=== PATIENT | female | born 1935 | race Caucasian/White ===

== ENCOUNTER 2017-05-31 14:20 | Emergency (ER) | payer MEDICARE, OTHER ==
[2017-05-31 14:27] VITALS: BP 132/72
--- NOTE | 2017-05-31 14:48 | ED Physician Documentation ---
PD HPI FEMALE - Stated complaint Stated Complaint: FEMALE - Chief complaint Chief Complaint: UTI - History obtained from History obtained from: Patient - History of Present Illness Timing - onset: Today Timing - duration: Days (1) Timing - details: Abrupt onset, Still present Associated symptoms: Dysuria, Urinary frequency. No: Vaginal discharge, Genital sore/lesion (no pain with wiping.) Similar symptoms before: Diagnosis (UTIs, but has not had one for about 2 years. ) Recently seen: Not recently seen Review of Systems Constitutional: denies: Fever, Chills GI: denies: Nausea, Vomiting Skin: denies: Rash, Lesions Musculoskeletal: denies: Back pain PD PAST MEDICAL HISTORY - Past Medical History Cardiovascular: Hypertension Neuro: CVA - Past Surgical History Past Surgical History: No - Present Medications Home Medications: Ambulatory Orders Medication Instructions Recorded Confirmed Aspirin/Dipyridamole [Aggrenox 25 1 each PO BID 07/14/13 05/31/17 mg-200 mg Capsule] Baclofen 10 mg PO TID 07/14/13 05/31/17 Citalopram [CeleXA] 15 mg PO DAILY 07/14/13 05/31/17 Lisinopril [Zestril] 40 mg PO DAILY 07/14/13 05/31/17 Metoprolol Tartrate 12.5 mg PO DAILY 07/14/13 05/31/17 diltiaZEM [Cardizem] 30 mg PO ONCE 07/14/13 05/31/17 predniSONE [Deltasone] 1 mg PO ONCE 07/14/13 05/31/17 Ciprofloxacin HCl [Cipro] 250 mg PO BID #10 tablet 05/31/17 Phenazopyridine [Pyridium] 200 mg PO TID PRN #15 tablet 05/31/17 - Allergies Allergies/Adverse Reactions: Allergies Allergy/AdvReac Type Severity Reaction Status Date / Time nitrofurantoin Allergy unknown Verified 07/14/13 09:38 [From Macrobid] nitrofurantoin Allergy unknown Verified 07/14/13 09:38 macrocrystalline * [From Macrobid] Sulfa (Sulfonamide Allergy unknown Verified 07/14/13 09:38 Antibiotics) - Social History Does the pt smoke?: No Smoking Status: Never smoker Does the pt drink ETOH?: No Does the pt have substance abuse?: No PD ED PE NORMAL - Vitals Vital signs reviewed: Yes - General General: Alert and oriented X 3, No acute distress, Well developed/nourished - Abdomen Abdomen: Soft, Non tender - Female Female : Deferred - Rectal Rectal: Deferred - Back Back: No CVA TTP - Derm Derm: Normal color, Warm and dry Results - Vitals Vitals: Vital Signs - 24 hr 05/31/17 14:24 Temperature 36.9 C Heart Rate 69 Respiratory 18 Rate Blood Pressure 132/72 H O2 Saturation 97 Oxygen O2 Source Room air - Labs Labs: Laboratory Tests 05/31/17 05/31/17 14:33 15:20 Urine Color YELLOW YELLOW Urine Clarity HAZY CLEAR Urine pH 6.0 6.0 Ur Specific Carmi 1.020 1.020 Urine Protein 100 H 100 H Urine Glucose (UA) NEGATIVE NEGATIVE Urine Ketones NEGATIVE NEGATIVE Urine Occult Blood TRACE-INTA TRACE-INTA Urine Nitrite NEGATIVE NEGATIVE Urine Bilirubin NEGATIVE NEGATIVE Urine Urobilinogen 0.2 (NORMAL) 0.2 (NORMAL) Ur Leukocyte Esterase SMALL H TRACE H Urine RBC 0-5 0-5 Urine WBC >25 H >25 H Ur Squamous Epith Cells MANY Squamous H FEW Squamous Urine Bacteria Few Few Ur Microscopic Review INDICATED INDICATED Urine Culture Comments NOT INDICATED INDICATED PD MEDICAL DECISION MAKING - ED course Complexity details: reviewed results, considered differential, d/w patient Departure - Departure Disposition: 01 Home, Self Care Clinical Impression: Urinary tract infection Qualifiers: Urinary tract infection type: acute cystitis Hematuria presence: without hematuria Qualified Code(s): N30.00 - Acute cystitis without hematuria Condition: Stable Record reviewed to determine appropriate education?: Yes Instructions: ED UTI Cystitis Female Prescriptions: Ciprofloxacin HCl [Cipro] 250 mg PO BID #10 tablet Phenazopyridine [Pyridium] 200 mg PO TID PRN #15 tablet PRN Reason: Pain Comments: Adequate fluids. Continue usual medications. Cipro twice daily for 5 days. Add phenazopyridine three times daily if needed for discomfort of urination. Recheck if not improving over the next 1-2 days. Discharge Date/Time: 05/31/17 16:02
[2017-05-31 14:56] LABS: BILIRUBIN,URINE NEGATIVE (NEGATIVE)
[2017-05-31 14:58] LABS: UA w/ MICROSCOPIC CHARGE YES
[2017-05-31 15:10] LABS: UR CULTURE IF IND NOT INDICATED; WBC,URINE >25 /HPF (0-5)
[2017-05-31] MEDS ORDERED: CIPROFLOXACIN 250 MG TABLET PO STA (15:10)
[2017-05-31] MEDS ORDERED: PHENAZOPYRIDINE 100 MG TABLET PO STA (15:10)
[2017-05-31] MEDS ORDERED: CIPROFLOXACIN 250 MG TABLET PO ONE ×2 (15:12→15:55)
[2017-05-31 15:44] LABS: BILIRUBIN,URINE NEGATIVE (NEGATIVE)
[2017-05-31 15:46] LABS: UA w/ MICROSCOPIC CHARGE YES
[2017-05-31 15:55] LABS: UR CULTURE IF IND INDICATED; WBC,URINE >25 /HPF (0-5)
== END 2017-05-31 16:02 | disposition home or self-care (01) ==
LOC: ED 14:20
DX: N30.00 Acute cystitis without hematuria (principal); I10 Essential (primary) hypertension; Z86.73 Personal history of transient ischemic attack (TIA), and cerebral infarction without residual deficits; Z79.82 Long term (current) use of aspirin
CPT/HCPCS: 81001; 87086; 99282; 99283; A9270; 81003